=== PATIENT | female | born 1970 | race American Indian/Alaskan Native ===

== ENCOUNTER 2017-06-14 01:28 | Emergency (ER) | payer OTHER ==
[2017-06-14] MEDS ORDERED: MOTRIN PO ONE (04:45)
--- NOTE | 2017-06-14 04:49 | Emergency Department Report ---
HPI - General Chief Complaint: Skin Rash Time Seen by Provider: 06/14/17 04:44 - HPI HPI: 47-year-old -[place] female comes in for complaint of bilateral itching and pain under her armpits and discoloration under her arms. Patient reports that she has bilateral breast implants and in the last 3 days she's noticed that there have dimpling in both breasts. Deflating breast and she is concern for the implants leaky. She reports the pain is 8 out of 10 that she is not able to put her arm down by herside still considered she has rash under both armpits. Patient has a past medical history of breast cancer and hypertension. ED Past Medical Hx - Past Medical History Previous Medical History?: Yes Hx Hypertension: Yes Hx of Cancer: Yes (Breast Cancer) - Surgical History Past Surgical History?: Yes Additional Surgical History: Bilateral mastectomy - Social History Smoking Status: Never Smoker Substance Use Type: None - Medications Home Medications: Home Medications Medication Instructions Recorded Confirmed Last Taken Type Ibuprofen 800 mg PO TID PRN #30 tablet 06/14/17 Unknown Rx Lisinopril/Hydrochlorothiazide 1 tab PO DAILY 06/14/17 06/14/17 Unknown History Sulfamethoxazole/Trimethoprim 1 each PO BID 10 Days #20 tablet 06/14/17 Unknown Rx [Bactrim Ds Tablet] ED Review of Systems ROS: Stated complaint: BREAST PAIN ,POSSIBLE LEAKING Other details as noted in HPI Constitutional: denies: chills, fever Eyes: denies: eye pain, eye discharge, vision change ENT: denies: ear pain, throat pain Respiratory: denies: cough, shortness of breath, wheezing Cardiovascular: denies: chest pain, palpitations Endocrine: no symptoms reported Gastrointestinal: denies: abdominal pain, nausea, diarrhea Skin: rash (both armpits) Neurological: denies: headache, weakness, paresthesias Psychiatric: denies: anxiety, depression Hematological/Lymphatic: denies: easy bleeding, easy bruising Physical Exam - Physical Exam Vital Signs: Vital Signs 06/14/17 06/14/17 01:32 01:37 Temperature 98.0 F 98.5 F Pulse Rate 79 72 Respiratory 16 16 Rate Blood Pressure 163/111 163/111 O2 Sat by Pulse 98 98 Oximetry Physical Exam: GENERAL: Alert and oriented x3, no apparent distress, Normal Gait, atraumatic. HEAD: Head is normocephalic and a-traumatic. EYES: Extra ocular muscles are intact. Pupils are equal, round, and reactive to light and accommodation. MOUTH:Mouth is well hydrated and without lesions. Tonsils nonerythematous or swollen, Uvula midline, Tongue not elevated. Mucous membranes are moist. Posterior pharynx clear, no exudate or lesions. Patent airways. NECK: Supple. Non edematous, No carotid bruits. No lymphadenopathy or thyromegaly. LUNGS: Symetrical with respiration, No wheezing, no rales or crackles, CTAB. HEART: S1, S2 present, regular rate and rhythm without murmur, no rubs, no gallops. ABDOMEN: No organomegaly was noted,Positive bowel sounds, soft, and non- distended. . Nontender to palpation on all Quadrants, NO CVA tenderness. BREAST: Symetrical, Supple bilaterally, proximal to the midline breast fullness is not noted. EXTREMITIES/MUSCULOSKELETAL: No cyanosis, clubbing, rash, lesions or edema. Full ROM bilaterally. UE/LE Pulses 2+ bilaterally. LE and UE 5+ strength bilaterally NEUROLOGIC: No focal Deficit, Cranial nerves II through XII are grossly intact. No loss of sensation, No facial droop, Negative rhomberg. PSYCHIATRIC: Mood is congruent with affect, denies suicidal or homicidal ideations. SKIN: Warm and dry, erythematous with tenderness to palpate in the raise rash under both armpits. ED Course Vital Signs 06/14/17 06/14/17 01:32 01:37 Temperature 98.0 F 98.5 F Pulse Rate 79 72 Respiratory 16 16 Rate Blood Pressure 163/111 163/111 O2 Sat by Pulse 98 98 Oximetry ED Medical Decision Making - Lab Data Result diagrams: 06/14/17 04:53 06/14/17 04:53 - Radiology Data Radiology results: report reviewed FINDINGS: There are bilateral breast implants. Both implants show fluid along superior medial and posterior margins of the implants bilaterally. Bilateral implant leaks are suspected. The implants otherwise appears symmetric in size. The lungs reveal atelectatic changes versus scarring in both lower lobes, lingula and right middle lobe. Pleural fluid is not seen. The lungs are not congested. The heart size is normal. The thoracic aorta is normal in caliber. There is no evidence of adenopathy. In the upper abdomen the adrenal glands not enlarged. The skeletal structures otherwise do not show any acute changes. IMPRESSION: Fluid collections along the superior medial and posterior margins of the implants bilaterally suggesting bilateral leaking implants. Both implants otherwise are symmetric in size. Increased linear markings in both lower lobes, lingula and right middle lobe secondary to atelectatic changes versus scarring bilaterally. Transcribed By: RB Dictated By: KORI ESCOBAR MD Electronically Authenticated By: KORI ESCOBAR MD Signed Date/Time: 06/14/17126 DD/ 6 TD/TT: 06/14/17126 - Medical Decision Making Patient has been evaluated by this provider fast track. I discussed the patient will give her ibuprofen for pain CT of her chest and to see if the implant or leaking. On give her Bactrim double strength for 10 days for her underarm rash. Patient verbalized understanding and that CT scan is back shows that there are bilateral leaking of the implants. I discussed the patient that she needs to follow up with the surgeon are placed the implants. Patient verbalized understanding. Critical care attestation.: If time is entered above; I have spent that time in minutes in the direct care of this critically ill patient, excluding procedure time. ED Disposition Clinical Impression: Rash and nonspecific skin eruption Leakage of breast implant Qualifiers: Encounter type: initial encounter Qualified Code(s): T85.43XA - Leakage of breast prosthesis and implant, initial encounter Disposition: DC-01 TO HOME OR SELFCARE Is pt being admited?: No Does the pt Need Aspirin: No Condition: Stable Instructions: Acute Rash (ED) Additional Instructions: Please take antibiotics as prescribed. Please follow-up with ear surgeon to have your implants reevaluated. He is take your CT result and scan 2 year provider. Prescriptions: Ibuprofen 800 mg PO TID PRN #30 tablet PRN Reason: Pain Sulfamethoxazole/Trimethoprim [Bactrim Ds Tablet] 1 each PO BID 10 Days #20 tablet Referrals: LY CAPPS MD [Primary Care Provider] - 3-5 Days Forms: Work/School Release Form(ED), Accompanied Note
[2017-06-14 05:11] LABS: Basophils # (Auto) 0.1 K/mm3 (0.0-0.1); Eosinophils # (Auto) 0.1 K/mm3 (0.0-0.4); Eosinophils % (Auto) 1.8 % (0.0-4.3); Hematocrit 42.2 % (30.3-42.9); Hemoglobin 14.2 gm/dl (10.1-14.3); Lymphocytes # (Auto) 2.8 K/mm3 (1.2-5.4); Lymphocytes % (Auto) 41.2 % (13.4-35.0); Mean Corpuscular HGB Conc 34 % (30-34); Mean Corpuscular Hemoglobin 30 pg (28-32); Mean Corpuscular Volume 90 fl (79-97); Monocytes # (Auto) 0.5 K/mm3 (0.0-0.8); Monocytes % (Auto) 7.6 % (0.0-7.3); Platelet Count 234 K/mm3 (140-440); Red Blood Count 4.68 M/mm3 (3.65-5.03); Red Cell Distribution Width 14.2 % (13.2-15.2)
--- NOTE | 2017-06-14 05:31 | Cat Scan Report ---
FINAL REPORT EXAM: CT CHEST WO CON HISTORY: breast implants are deflating hx breast ca. TECHNIQUE: Routine axial imaging was obtained of the thorax without IV contrast with sagittal coronal reconstructions. There are no previous studies available for comparison FINDINGS: There are bilateral breast implants. Both implants show fluid along superior medial and posterior margins of the implants bilaterally. Bilateral implant leaks are suspected. The implants otherwise appears symmetric in size. The lungs reveal atelectatic changes versus scarring in both lower lobes, lingula and right middle lobe. Pleural fluid is not seen. The lungs are not congested. The heart size is normal. The thoracic aorta is normal in caliber. There is no evidence of adenopathy. In the upper abdomen the adrenal glands not enlarged. The skeletal structures otherwise do not show any acute changes. IMPRESSION: Fluid collections along the superior medial and posterior margins of the implants bilaterally suggesting bilateral leaking implants. Both implants otherwise are symmetric in size. Increased linear markings in both lower lobes, lingula and right middle lobe secondary to atelectatic changes versus scarring bilaterally.
[2017-06-14 05:32] LABS: Alanine Aminotransferase 17 units/L (7-56); Albumin 4.3 g/dL (3.9-5); BUN/Creatinine Ratio 16; Blood Urea Nitrogen 13 mg/dL (7-17); Calcium 9.5 mg/dL (8.4-10.2); Hemolysis Index 4
[2017-06-14 07:23] VITALS: BP 150/100
== END 2017-06-14 07:23 | disposition home or self-care (01) ==
LOC: EDBD → ED 01:28
DX: T85.43XA Leakage of breast prosthesis and implant, initial encounter (principal); I10 Essential (primary) hypertension; Z90.13 Acquired absence of bilateral breasts and nipples; Z85.3 Personal history of malignant neoplasm of breast
CPT/HCPCS: 36415; 71250; 80053; 85025